=== PATIENT | male | born 1960 | race Caucasian/White ===

== ENCOUNTER 2017-04-15 06:09 | Emergency (ER) | payer OTHER ==
--- NOTE | 2017-04-15 06:35 | ED Physician Documentation ---
Upper Extremity Injury - HISTORIAN Historian: patient - HPI Stated Complaint: right wrist pain Chief Complaint: Upper Extremity Problem - ROS CONST: no problems - PAST HX Past History: none - SOCIAL HX Smoking History: non-smoker - FAMILY HX Family History: none - REVIEWED ASSESSMENTS Nursing Assessment Reviewed: Yes Vitals Reviewed: Yes <LAVONNE GARCIA - Last Filed: 04/15/17 06:57> <Jorge L Arellano - Last Filed: 04/15/17 07:43> - HPI Additional Information: Right wrist hurt worse yesterday after work. Woke him at 0430. Took diclofenac w /o relief. Lays brick with right hand, otherwise left handed. No injury (LAVONNE GARCIA) - PAST HX Allergies/Adverse Reactions: Allergies Allergy/AdvReac Type Severity Reaction Status Date / Time No Known Allergies Allergy Unverified 04/15/17 06:42 Home Medications: Ambulatory Orders Medication Instructions Recorded Diclofenac Sodium [Diclofenac 100 mg PO QDAY 04/15/17 Sodium ER] Levothyroxine Sodium [Synthroid] 75 mcg PO QDAY 04/15/17 Lisinopril 20 mg PO QDAY 04/15/17 Ranitidine HCl 150 mg PO QDAY 04/15/17 - VITAL SIGNS Vital Signs: Vital Signs Temp Pulse Resp BP Pulse Ox 100.0 F H 98 H 18 177/86 98 04/15/17 06:10 04/15/17 06:10 04/15/17 06:10 04/15/17 06:10 04/15/17 06:10 Progress <LAVONNE GARCIA - Last Filed: 04/15/17 06:57> <Jorge L Arellano - Last Filed: 04/15/17 07:43> - Progress Progress: 0700, care to Dr. Arellano. Awaiting radiologist read. (LAVONNE GARCIA) ED Results Lab/Radiology <LAVONNE GARCIA - Last Filed: 04/15/17 06:57> <Jorge L Arellano - Last Filed: 04/15/17 07:43> - Radiology Radiology Impressions: no fracture seen--mod djd (Jorge L Arellano) - Orders Orders: ED Orders Category Date Time Status WRIST 3 VIEWS OR MORE [RAD] Stat Exams 04/15/17 Completed Upper Extremity Injury Physic - Physical Exam General Appearance: no acute distress, alert Hand: normal inspection, non-tender, no evidence of injury, normal ROM Wrist: no evidence of injury, normal ROM, swelling (right) Elbow/Forearm: normal inspection, no evidence of injury Neuro/Vascular/Tendon: no vascular compromise (right radial pulse 2+), motor nml , sensation nml Skin: warm,dry Head/ENT: nml inspection Neck/Back: nml inspection Resp/CVS: no resp. distress <LAVONNE GARCIA - Last Filed: 04/15/17 06:57> Discharge <LAVONNE GARCIA - Last Filed: 04/15/17 06:57> Decision to Admit: NO Decision Time: 07:43 <Jorge L Arellano - Last Filed: 04/15/17 07:43> Clincal Impression: wrist sprain, over use syndrome-heel layer Referrals: Primary Doctor,No [Primary Care Provider] - 2 Days Home Medications: Ambulatory Orders Diclofenac Sodium [Diclofenac Sodium ER] 100 mg PO QDAY 04/15/17 Levothyroxine Sodium [Synthroid] 75 mcg PO QDAY 04/15/17 Lisinopril 20 mg PO QDAY 04/15/17 Ranitidine HCl 150 mg PO QDAY 04/15/17 Comments: pt has wrist splint-rec use and no work till improved (Jorge L Arellano) Condition: Good Disposition: 01 HOME, SELF-CARE
--- NOTE | 2017-04-15 07:16 | Diagnostic Imaging Report ---
LAVONNE GARCIA [facility] [address] [facility] [address] [address] Report Submission Date: Apr 15, 2017 7:08:20 AM CDT Patient Study Name: KEESHA MCDONALD Date: Apr 15, 2017 6:34:37 AM CDT Modality Type: CR Gender: M Description: UPPER EXTREMITY : 64 Institution: [facility] Physician: LAVONNE GARCIA Right wrist -three views CLINICAL HISTORY: Pain beginning yesterday. FINDINGS: Examination right wrist in palmar, lateral and oblique views demonstrates degenerative changes with narrowing of the radiocarpal and lateral intercarpal joints. There is no evident fracture and no lytic or blastic lesion. IMPRESSION: Degenerative changes. No fracture. Electronically signed on Apr 15, 2017 7:08:20 AM CDT by: Dimas DEAN
[2017-04-15 07:50] VITALS: BP 142/95
== END 2017-04-15 07:48 | disposition home or self-care (01) ==
LOC: ED 06:09
DX: S63.591A Other specified sprain of right wrist, initial encounter (principal); X58.XXXA Exposure to other specified factors, initial encounter; Y93.9 Activity, unspecified; Y99.9 Unspecified external cause status
CPT/HCPCS: 73110; 99283